=== PATIENT | female | born 1990 | race Caucasian/White ===

== ENCOUNTER → 2021-04-05 12:48 | Outpatient (CLI) | payer BC, SELFPAY ==
--- NOTE | ~2021-04-05 | US_ITS ---
EXAMINATION: US thyroid DATE: 04/05/2021 13:10 INDICATION: Nontoxic goiter. TECHNIQUE: Multiple ultrasound images of the thyroid were obtained. COMPARISON: None. FINDINGS: The right thyroid lobe measures 3.4 x 1.6 x 1.2 cm. The left thyroid lobe measures 3.0 x 1.2 x 0.9 c m. The thyroid demonstrates heterogeneous echogenicity and increased vascularity. No discrete nodule . IMPRESSION: 1. Heterogeneous, hypervascular thyroid, consistent with chronic lymphocytic (Aly) thyroiditis. Reviewed, dictated and finalized at location E. LOADER IMPRESSION: 1. Heterogeneous, hypervascular thyroid, consistent with chronic lymphocytic (H ashimoto) thyroiditis.
== END ==
DX: E04.9 Nontoxic goiter, unspecified (principal)
CPT/HCPCS: 76536

== ENCOUNTER 2021-06-02 07:02 | Outpatient (CLI) | payer BC, SELFPAY ==
[2021-06-02 08:28] LABS: Cortisol Random 1.62 ug/dL
== END 2021-06-02 07:03 | disposition home or self-care (01) ==
LOC: ANHLAB 07:06
PROVIDERS: Visit Provider Nurse Practitioner
DX: R94.7 Abnormal results of other endocrine function studies (principal)
CPT/HCPCS: 36415; 82533